=== PATIENT | male | born 1950 | race Two or more races ===

== ENCOUNTER 2023-02-18 05:57 | Emergency (ER) | payer OTHER ==
[~2023-02-18] VITALS: Ht 167.6 cm; Wt 99.8 kg
[2023-02-18] MEDS ORDERED: LOSARTAN POTASS25 MG (06:09)
[2023-02-18] MEDS ORDERED: OMEPRAZOLE MAGN20 MG (06:09)
== END 2023-02-18 10:28 | disposition home or self-care (01) ==
LOC: ER 05:57
DX: M62.838 Other muscle spasm (principal); M54.2 Cervicalgia
CPT/HCPCS: 96372; 99284; J1100; J1885; J2360